=== PATIENT | female | born 1975 | race Caucasian/White ===

== ENCOUNTER 2017-09-03 09:02 | Outpatient (CLI) | payer OTHER ==
[2016-10-22 10:13] VITALS: BP 113/69
== END 2017-09-03 09:04 ==
LOC: LAB 09:02
PROVIDERS: ATTEND Physician Assistant
DX: Z12.4 Encounter for screening for malignant neoplasm of cervix (principal)
CPT/HCPCS: 36415; 86703; 87491; 87591; 88148; G0143

== ENCOUNTER 2017-10-22 09:49 | Outpatient (CLI) | payer OTHER ==
[2016-10-22 10:13] VITALS: BP 113/69
[2017-10-22 10:34] LABS: eGFR (African) > 60; eGFR (Non-African) > 60
== END 2017-10-22 09:50 ==
LOC: LAB 09:49
PROVIDERS: ATTEND Internal Medicine Gastroenterology
DX: K51.20 Ulcerative (chronic) proctitis without complications (principal)
CPT/HCPCS: 36415; 82565